=== PATIENT | male | born 1990 | race African-American/Black ===

== ENCOUNTER 2020-02-04 17:02 | Emergency (ER) | payer OTHER ==
[2020-02-04 17:09] VITALS: RESP 18
[2020-02-04] MEDS ORDERED: KETOROLAC 15 MG/ML 1 ML VIAL IM STA (17:25)
[2020-02-04] MEDS ORDERED: MORPHINE SULFATE 4 MG/ML SYRINGE IM STA (17:49)
--- NOTE | 2020-02-04 17:57 | XR ---
EXAMINATION TYPE: XR femur LT DATE OF EXAM: 02/04/2020 CLINICAL HISTORY: Pain after fall injury today. TECHNIQUE: Two views of the left femur are obtained. COMPARISON: None FINDINGS: There is acute comminuted displaced fracture mid to distal diaphysis left femur. There are a few small fracture fragments. There is 2.6 cm posterior displacement with slight impaction distal fracture fragment. There is 4.7 cm medial displacement distal fracture fragment The left hip and kne e joints appear within normal limits. The overlying soft tissue appears unremarkable. IMPRESSION: There is acute comminuted displaced fracture mid to distal diaphysis left femur.
--- NOTE | 2020-02-04 18:28 | ED ---
Lower Extremity Injury HPI - General Chief Complaint: Extremity Injury, Lower Stated Complaint: Knee Injury Time Seen by Provider: 02/04/20 17:04 Source: patient Mode of arrival: EMS Limitations: no limitations - History of Present Illness Initial Comments: Patient is a 29-year-old male presenting to the emergency department via EMS from [place] after having an injury to his left knee. Patient states he was running, jumped trying to do a front flip. Patient states his leg slipped and he had instant pain in his left knee. Patient states he has hurt his left knee in the past, no surgical history. Patient is currently a [place] for opiate addiction. He has no other pertinent past medical history. He did not receive any pain medicine in the EMS prior to arrival. He denies any other injuries from this fall, he did not hit his head. No loss of consciousness. There are no further complaints. On arrival to the ER, his vital signs are stable. - Related Data Home Medications Medication Instructions Recorded Confirmed Acetaminophen [Tylenol 8 Hour] 650 mg PO Q4H 02/04/20 02/04/20 Calcium/Magnesium/Zinc 2 tab PO TID PRN 02/04/20 02/04/20 [Uinzqhq-Mjcyeptzq-Qwsw Tablet] Chlorpheniramine Maleate 4 mg PO Q4H PRN 02/04/20 02/04/20 [Chlor-Trimeton] Ibuprofen [Motrin] 600 mg PO Q6H PRN 02/04/20 02/04/20 Multivitamins, Thera [Multivitamin 1 tab PO DAILY 02/04/20 02/04/20 (formulary)] Thiamine [Vitamin B-1] 100 mg PO DAILY 02/04/20 02/04/20 traZODone HCL 50 - 150 mg PO HS 02/04/20 02/04/20 Allergies Allergy/AdvReac Type Severity Reaction Status Date / Time No Known Allergies Allergy Verified 02/04/20 18:16 Review of Systems ROS Statement: Those systems with pertinent positive or pertinent negative responses have been documented in the HPI. ROS Other: All systems not noted in ROS Statement are negative. Past Medical History Past Medical History: No Reported History History of Any Multi-Drug Resistant Organisms: None Reported Past Surgical History: No Surgical Hx Reported Smoking Status: Current every day smoker Past Alcohol Use History: None Reported Past Drug Use History: Marijuana, Opiates, Prescription Drug Abuse General Exam - General Exam Comments Initial Comments: GENERAL: Patient is well-developed and well-nourished. Patient is nontoxic and in no acute distress. HEAD: Atraumatic, normocephalic. EYES: Pupils equal round and reactive to light, extraocular movements intact, sclera anicteric, conjunctiva are normal. Eyelids were unremarkable. ENT: TMs normal, nares patent, oropharynx clear without exudates. Moist mucous membranes. NECK: Normal range of motion, supple without lymphadenopathy or JVD. LUNGS: Unlabored respirations. Breath sounds clear to auscultation bilaterally and equal. No wheezes rales or rhonchi. HEART: Regular rate and rhythm without murmurs, rubs or gallops. ABDOMEN: Soft, nontender, normoactive bowel sounds. No guarding, no rebound. No masses appreciated. : Deferred MUSCULOSKELETAL: Patient has significant pain with palpation of the left knee, left distal upper thigh. Patient is able to wiggle his left toes and ankle although that produces pain in his left knee. He is neurovascular intact. No clubbing or cyanosis. NEUROLOGICAL: Patient is alert and oriented x 3. Motor and sensory are also intact. Cranial nerves II through XII grossly intact. Symmetrical smile. Normal speech. PSYCH: Normal mood, normal affect. SKIN: Warm, Dry, normal turgor, no rashes or lesions noted. Limitations: no limitations Course Vital Signs 02/04/20 17:06 Temperature 98.3 F Pulse Rate 76 Respiratory 18 Rate Blood Pressure 159/80 O2 Sat by Pulse 100 Oximetry Medical Decision Making - Medical Decision Making Patient is a 29-year-old male presenting to the ER via EMS after sustaining an injury to his left knee. Patient was running, went to do a front flip and his leg slipped. X-rays of his left femur reveal an acute comminuted displaced fracture to the mid to distal diaphysis of the left femur. He is currently neurovascular intact. We did give him pain medications. I did speak with on- call ortho, GI Murray, who recommended transfer to [facility] for ortho trauma. She was accepted by ortho trauma physician, Dr. Jefferson. IV access was established. Patient is comfortable at this time. Patient will be transferred via EMS. He is in agreement with this plan of care. Case discussed with Dr. Reeves. Disposition Clinical Impression: Closed fracture of left distal femur Disposition: OTHER INSTITUTION NOT DEFINED Condition: Stable Referrals: None,Stated [Primary Care Provider] - 1-2 days - Out of Hospital Transfer - Req. Specs Out of Hospital Transfer - Requested Specifics: Other Emergency Center ([facility] ER-ortho Trauma)
[2020-02-04 19:11] VITALS: BP 140/82; PULSE 96; TEMP 98.7
== END 2020-02-04 19:12 | disposition other institution (70) ==
LOC: EC 17:02
DX: S72.402A Unspecified fracture of lower end of left femur, initial encounter for closed fracture (principal); F17.200 Nicotine dependence, unspecified, uncomplicated; Z79.899 Other long term (current) drug therapy; W01.0XXA Fall on same level from slipping, tripping and stumbling without subsequent striking against object, initial encounter; Y93.39 Activity, other involving climbing, rappelling and jumping off
CPT/HCPCS: 73552; 99284; 96372 ×2; J2270; J1885